=== PATIENT | female | born 1940 | race Caucasian/White ===

== ENCOUNTER 2017-02-08 11:54 | Inpatient (IN) | payer OTHER ==
[~2017-02-08] VITALS: Ht 152.4 cm; Wt 72.7 kg
[~2017-02-08 11:54] MED LIST: AMLODIPINE BES2.5 MG PO; ARIMIDEX1 MG PO; BAYER CHEWABLE81 MG PO; CALCITRIOL0.25 MCG; ZETIA10 MG PO
[2017-02-08 13:14] LABS: HEMATOCRIT 33.3 % (36.0-46.0); MCHC 31.8 G/DL (30.0-36.0); MCV 97.4 FL (83-99); MEAN PLAT.VOLUME 10.4 uM^3 (9.5-12.4); RBC DIS.WIDTH-CV 15.4 % (11.8-14.6); RBC DIS.WIDTH-SD 54.6 % (39-53); RED BLOOD COUNT 3.42 M/uL (3.80-5.20)
[2017-02-08 13:18] LABS: PLATELET COUNT 420 K/uL (156-360); WHITE BLOOD COUNT 8.2 K/uL (4.1-10.2)
[2017-02-08 13:19] LABS: CHLORIDE 102 mEq/L (99-109); POTASSIUM 4.3 mEq/L (3.7-5.4); SODIUM 140 mEq/L (136-147)
[2017-02-08 13:21] LABS: GLUCOSE 91 mg/dL (70-99)
[2017-02-08 13:22] LABS: ANION GAP 15 MEQ/L (2-14)
[2017-02-08 13:25] LABS: GFR ESTIMATE (CALCULATED) 42 mL/min/; UREA NITROGEN (BUN) 30 mg/dL (9-23)
[2017-02-08 13:27] LABS: TROP-I INTERPRETATION NEGATIVE; TROPONIN-I < 0.01 ng/mL (0.0-0.30)
[2017-02-08] MEDS ORDERED: IRON325 MG PO (14:19)
[2017-02-08] MEDS ORDERED: BENADRYL25 MG PO (14:19)
[2017-02-08] MEDS ORDERED: CYANOCOBALAM1000 MCG PO (14:20)
[2017-02-08] MEDS ORDERED: CALCIUM600 M1 PO (14:22)
[2017-02-08] MEDS ORDERED: VITAMIN D31000 UNIT PO (14:23)
[2017-02-08 14:29] LABS: INFLUENZA A VIRAL ANTIGEN NEGATIVE; INFLUENZA B VIRAL ANTIGEN NEGATIVE
[2017-02-08 19:53] VITALS: BP 141/67
[2017-02-08 23:34] VITALS: BP 139/69
[2017-02-09 03:48] VITALS: BP 138/71
[2017-02-09 08:00] VITALS: BP 120/65
[2017-02-09 11:00] VITALS: BP 110/62
[2017-02-09 11:11] LABS: INTERNAL CONTROL VALID? YES
[2017-02-09 16:00] VITALS: BP 111/56
[2017-02-09 19:51] VITALS: BP 111/55
[2017-02-09 23:30] VITALS: BP 125/63
[2017-02-10 04:15] VITALS: BP 120/69
[2017-02-10 07:44] VITALS: BP 119/62
[2017-02-10 11:18] VITALS: BP 119/59
[2017-02-10 15:31] VITALS: BP 126/71
[2017-02-10 17:46] LABS: POINT-OF-CARE METER ID UU14188625
[2017-02-10 20:18] VITALS: BP 127/61
[2017-02-11] VITALS (7 sets, daily range): BP systolic 118–162; BP diastolic 61–76
[2017-02-11 07:34] LABS: ANION GAP 9 MEQ/L (2-14); CHLORIDE 108 MEQ/L (99-109); GFR ESTIMATE (CALCULATED) 51 mL/min/; GLUCOSE 83 mg/dL (70-99); POTASSIUM 4.2 MEQ/L (3.7-5.4); SAMPLE HEMOLYSIS CHECK 0; SAMPLE ICTERIC CHECK 0; SAMPLE LIPEMIA CHECK 0; SODIUM 144 MEQ/L (136-147); UREA NITROGEN (BUN) 14 mg/dL (9-23)
[2017-02-12 04:00] VITALS: BP 130/76
[2017-02-12 06:53] LABS: ANION GAP 8 MEQ/L (2-14); CHLORIDE 109 MEQ/L (99-109); GFR ESTIMATE (CALCULATED) 51 mL/min/; GLUCOSE 86 mg/dL (70-99); POTASSIUM 4.2 MEQ/L (3.7-5.4); SAMPLE HEMOLYSIS CHECK 0; SAMPLE ICTERIC CHECK 0; SAMPLE LIPEMIA CHECK 0; SODIUM 145 MEQ/L (136-147); UREA NITROGEN (BUN) 19 mg/dL (9-23)
[2017-02-12 06:55] LABS: EOSINOPHIL (%) 0.3 % (0-5); HEMATOCRIT 27.2 % (36.0-46.0); IMMATURE GRANULOCYTE (%) 0.6 % (0.0-0.7); INSTRUMENT ABS NEUTROPHIL CT 2.2 K/uL; LYMPHOCYTE COUNT 0.8 K/uL (1.0-2.8); MCH 31.1 PG (29.0-34.0); MCHC 31.3 G/DL (30.0-36.0); MCV 99.6 FL (83-99); MEAN PLAT.VOLUME 9.8 uM^3 (9.5-12.4); MONOCYTE (%) 14.4 % (3-12); MONOCYTE COUNT 0.5 K/uL (0-0.8); NEUTROPHIL (%) 61.4 % (45-76); NEUTROPHIL COUNT 2.2 K/uL (1.8-6.4); PLATELET COUNT 371 K/uL (156-360); RBC DIS.WIDTH-CV 15.7 % (11.8-14.6); RBC DIS.WIDTH-SD 56.8 % (39-53)
[2017-02-12 07:04] LABS: RED BLOOD COUNT 2.73 M/uL (3.80-5.20); WHITE BLOOD COUNT 3.6 K/uL (4.1-10.2)
[2017-02-12 07:38] VITALS: BP 140/69
[2017-02-12 14:58] VITALS: BP 142/72
[2017-02-12 23:16] VITALS: BP 152/84
[2017-02-13 07:30] VITALS: BP 168/78
[2017-02-13 07:49] LABS: HEMATOCRIT 29.2 % (36.0-46.0); MCHC 31.5 G/DL (30.0-36.0); MCV 98.3 FL (83-99); MEAN PLAT.VOLUME 9.9 uM^3 (9.5-12.4); PLATELET COUNT 356 K/uL (156-360); RBC DIS.WIDTH-CV 15.3 % (11.8-14.6); RBC DIS.WIDTH-SD 54.5 % (39-53); RED BLOOD COUNT 2.97 M/uL (3.80-5.20)
[2017-02-13 08:26] LABS: WHITE BLOOD COUNT 5.9 K/uL (4.1-10.2)
[2017-02-13 11:32] VITALS: BP 131/65
[2017-02-13 15:15] VITALS: BP 136/68
[2017-02-13 19:46] VITALS: BP 135/67
[2017-02-13 23:46] VITALS: BP 137/67
[2017-02-14 03:50] VITALS: BP 135/73
[2017-02-14 07:07] LABS: MCHC 31.4 G/DL (30.0-36.0); MCV 98.6 FL (83-99); MEAN PLAT.VOLUME 9.9 uM^3 (9.5-12.4); PLATELET COUNT 357 K/uL (156-360); RBC DIS.WIDTH-CV 15.4 % (11.8-14.6); RBC DIS.WIDTH-SD 55.2 % (39-53); RED BLOOD COUNT 2.94 M/uL (3.80-5.20); WHITE BLOOD COUNT 6.1 K/uL (4.1-10.2)
[2017-02-14 07:28] VITALS: BP 147/63
[2017-02-14 07:33] LABS: IRON 93 MCG/DL (35-150)
[2017-02-14 08:08] LABS: FERRITIN 241 NG/ML (10-291)
[2017-02-14] MEDS ORDERED: CEFDINIR300 MG PO (11:26)
[2017-02-14] MEDS ORDERED: SPIRIVA RESPIMAT4 GM IH (11:26)
[2017-02-14] MEDS ORDERED: PREDNISONE20 MG PO (11:26)
[2017-02-14] MEDS ORDERED: FLORASTOR250 MG PO (11:26)
[2017-02-14] MEDS ORDERED: VENTOLIN HFA18 GM IH (11:26)
[2017-02-14] MEDS ORDERED: PANTOPRAZOLE SO40 MG PO (11:26)
== END 2017-02-14 17:28 | disposition home health service (06) | DRG 190 ==
LOC: EME 11:54 → 5SOUTH 13:48 → EDOF 13:48 → 5SOUTH 19:28
PROVIDERS: Emergency Medicine; Hospitalist; Internal Medicine; Internal Medicine Gastroenterology; Nurse Practitioner Adult Health; Physician Assistant Medical
DX: J44.0 Chronic obstructive pulmonary disease with (acute) lower respiratory infection (principal); J18.9 Pneumonia, unspecified organism; J96.01 Acute respiratory failure with hypoxia; J44.1 Chronic obstructive pulmonary disease with (acute) exacerbation; I10 Essential (primary) hypertension; D64.9 Anemia, unspecified; E78.5 Hyperlipidemia, unspecified; R19.5 Other fecal abnormalities; F17.200 Nicotine dependence, unspecified, uncomplicated; Z85.3 Personal history of malignant neoplasm of breast; Z88.0 Allergy status to penicillin; Z91.19 Patient's noncompliance with other medical treatment and regimen
CPT/HCPCS: 71020; 80048; 82272; 82728; 82948; 83540; 84466; 84484; 85025; 85027; 87040; 87070; 87205; 87449; 87502; 87651 90; 92610 GN; 93005; 94640; 94640 76; 94799; 99202; 99281; 99285; J0456; J0696; J1650; J7030; J7050; J7512